=== PATIENT | male | born 1960 | race Caucasian/White ===

== ENCOUNTER 2024-06-03 17:34 | Emergency (ER) | payer BC, OTHER ==
[2024-06-03] MEDS: Tetracaine HCl/PF 0.5% 4 ML Bottle EYELF ONE (17:48)
[2024-06-03] MEDS: Distilled Water Ophth Irrig Soln 120 ML Bottle EYELF ONE (17:50)
== END 2024-06-03 18:34 | disposition home or self-care (01) ==
LOC: LL.ED 17:34
DX: S05.02XA Injury of conjunctiva and corneal abrasion without foreign body, left eye, initial encounter (principal); I10 Essential (primary) hypertension; K21.9 Gastro-esophageal reflux disease without esophagitis; E78.00 Pure hypercholesterolemia, unspecified; F17.210 Nicotine dependence, cigarettes, uncomplicated; Z79.899 Other long term (current) drug therapy; X58.XXXA Exposure to other specified factors, initial encounter
CPT/HCPCS: 99283; J3490